=== PATIENT | female | born 1950 | race Caucasian/White ===

== ENCOUNTER → 2024-02-08 14:37 | Outpatient (REF) | payer MEDICARE, SELFPAY | LOC: WDC 14:37 | PROVIDERS: ATTENDING PHYSICIAN Internal Medicine | DX: Z12.31 Encounter for screening mammogram for malignant neoplasm of breast (principal); R92.8 Other abnormal and inconclusive findings on diagnostic imaging of breast | CPT/HCPCS: 76642; 77063; 77067 ==

== ENCOUNTER → 2024-11-07 07:53 | Outpatient (REF) | payer MEDICARE, SELFPAY | LOC: WDC 07:53 | PROVIDERS: ATTENDING PHYSICIAN Internal Medicine | DX: R92.2 Inconclusive mammogram (principal) | CPT/HCPCS: 76641 ==

== ENCOUNTER → 2025-02-08 12:31 | Outpatient (REF) | payer MEDICARE, SELFPAY | LOC: HWWDC 12:31 | PROVIDERS: ATTENDING PHYSICIAN Internal Medicine | DX: Z12.31 Encounter for screening mammogram for malignant neoplasm of breast (principal) | CPT/HCPCS: 77063; 77067 ==